=== PATIENT | female | born 1965 | race Hispanic/Latino ===

== ENCOUNTER 2021-08-20 08:31 | Outpatient (CLI) | payer OTHER ==
--- NOTE | 2021-08-20 09:43 | Cat Scan Report ---
CTA CHEST (AORTIC ANEURYSM) INDICATION / CLINICAL INFORMATION: I34.1. Thoracic aortic aneurysm. TECHNIQUE: Axial CT images were obtained through the chest after injection of 90 cc of Omnipaque 350 IV contrast. 3 plane MIP and/or 3D reconstructions were produced. All CT scans at this location are p erformed using CT dose reduction for ALARA by means of automated exposure control. COMPARISON: None available. FINDINGS: HEART: - Size: Normal. - [place] Coronary Atherosclerosis: None. - Pericardium: No pericardial effusion. THORACIC AORTA: - Dissection: No dissection. - Aneurysm: There is mild aneurysmal dilatation of the ascending aorta measuring up to 4.1 cm in diam eter. The descending thoracic aorta measures 2.4 cm at the same level. The aortic arch measures 2.5 c m. - Atherosclerosis: No significant atherosclerosis. GREAT VESSELS: No acute abnormality. No significant atherosclerosis. PULMONARY ARTERIES: No pulmonary emboli. CHEST VEINS: Single SVC of normal caliber as visualized to the right of midline. No significant abnor mality. ADDITIONAL CHEST FINDINGS: No significant additional findings. The lungs are clear without evidence o f parenchymal disease. UPPER ABDOMEN: No signficant abnormality. SKELETAL SYSTEM: No significant abnormality. IMPRESSION: Mild aneurysmal dilatation of the ascending aorta measures 4.1 cm as described. Otherwise unremarkabl e CTA chest. Signer Name: Nelson Nguyen Jr, MD Signed: 08/20/2021 9:38 AM Workstation Name: [id number]
== END 2021-08-20 08:32 | disposition home or self-care (01) ==
LOC: CT 08:31
PROVIDERS: ATTEND Internal Medicine Cardiovascular Disease
DX: I77.810 Thoracic aortic ectasia (principal); R00.2 Palpitations; I34.1 Nonrheumatic mitral (valve) prolapse; Z82.49 Family history of ischemic heart disease and other diseases of the circulatory system
CPT/HCPCS: 71275; Q9967